=== PATIENT | female | born 1930 | race Caucasian/White ===

== ENCOUNTER 2018-02-26 08:42 | Emergency (ER) | payer MEDICARE, MEDICAID ==
[~2018-02-26] VITALS: Ht 152.4 cm; Wt 60.9 kg
[~2018-02-26 08:42] MED LIST: AMLO10TA PO; ATEN25TA17 PO; FLUO-81 PO; GABA-532 PO; PENT100C9 PO; SIMV20TA5 PO; TRAM50TA2 PO; VALS160T2 PO
[2018-02-26 09:32] LABS: CLARITY,URINE CLOUDY (Clear); COLOR,URINE YELLOW (Yellow); GLUCOSE, URINE NEGATIVE (Neg); KETONES,URINE NEGATIVE (Neg); LEUKOCYTE ESTERASE ,URINE LARGE (Neg); NITRITES, URINE NEGATIVE (Neg); OCCULT BLOOD,URINE MODERATE (Neg); PROTEIN,URINE 30 mg/dl (Neg); UROBILINOGEN,URINE 0.2 E.U/dL (0.2-1.0)
[2018-02-26 09:32] LABS: BASOPHILS % (AUTO) 0.5 % (0-1); EOSINOPHILS # (AUTO) 0.1 X10'3 (0-0.9); EOSINOPHILS % (AUTO) 1.3 % (0-6); HEMATOCRIT 43.4 % (35.0-45.0); HEMOGLOBIN 14.4 g/dl (12.0-16.0); LYMPHOCYTES # (AUTO) 1.6 X10'3 (1.1-4.8); LYMPHOCYTES % (AUTO) 22.9 % (21-51); MEAN CORPUSCULAR HEMOGLOBIN 28.2 PG (27.0-31.0); MEAN CORPUSCULAR HGB CONC 33.2 % (33.0-36.5); MEAN PLATELET VOLUME 10.2 FL (7.4-10.4); MONOCYTES # (AUTO) 0.8 X10'3 (0-0.9); MONOCYTES % (AUTO) 11.4 % (2-12); NEUTROPHILS # (AUTO) 4.3 X10'3 (1.8-7.7); NEUTROPHILS % (AUTO) 63.9 % (42-75); PLATELET COUNT 170 X10'3 (140-440); RED CELL DISTRIBUTION WIDTH 15.7 % (11.5-14.5); WHITE BLOOD COUNT 6.8 X10'3 (4.5-11.0)
[2018-02-26 09:35] LABS: UA COLLECTION TYPE CLN CATCH MIDSTREAM
[2018-02-26 09:45] LABS: BACTERIA,URINE 4+ /HPF (Neg); MUCUS STRANDS MODERATE /LPF (Neg); SQUAMOUS EPITHELIAL CELL,UR MODERATE /LPF (FEW); WBC,URINE TNTC /HPF (0-4)
[2018-02-26 09:48] LABS: ALANINE AMINOTRANSFERASE 7 U/L (12-78); ALBUMIN 3.6 G/DL (3.4-5.0); ALBUMIN/GLOBULIN RATIO 0.9 (1.1-1.5); ALKALINE PHOSPHATASE 55 IU/L (46-116); ANION GAP 11 (8-16); ASPARTATE AMINO TRANSFERASE 19 U/L (10-37); BILIRUBIN,TOTAL 0.5 MG/DL (0.1-1.0); BLOOD UREA NITROGEN 11 MG/DL (7-18); BUN/CREATININE RATIO 11.6 (6.6-38.0); CALCIUM 9.2 MG/DL (8.5-10.1); CHLORIDE 100 MMOL/L (99-107); CREATININE 0.95 MG/DL (0.40-0.90); GLUCOSE 94 MG/DL (70-104); SODIUM 138 MMOL/L (135-145); TOTAL CARBON DIOXIDE 26.8 MMOL/L (24-32); TOTAL PROTEIN 7.7 G/DL (6.4-8.2); eGFR 56 ML/MIN
[2018-02-26 09:51] LABS: LIPASE 91 U/L (73-393); TROPONIN I < 0.04 NG/ML (0.0-0.05)
[2018-02-26] MEDS ORDERED: BISA-155 PO (09:58)
[2018-02-26] MEDS ORDERED: MAGN296S50 PO (09:58)
[2018-02-26] MEDS ORDERED: ciprofloxacin 250mg tablet PO ONE (10:00)
[2018-02-26] MEDS ORDERED: CIPR-259 PO (10:06)
[2018-02-26 10:16] VITALS: BP 145/82
== END 2018-02-26 10:23 | disposition home or self-care (01) ==
LOC: ER 08:43
DX: N39.0 Urinary tract infection, site not specified (principal); K59.00 Constipation, unspecified; E78.00 Pure hypercholesterolemia, unspecified; K21.9 Gastro-esophageal reflux disease without esophagitis; Z90.710 Acquired absence of both cervix and uterus; Z88.6 Allergy status to analgesic agent; Z88.8 Allergy status to other drugs, medicaments and biological substances
CPT/HCPCS: 36415; 80053; 81001; 83605; 83690; 84484; 85025; 87088; 99284

== ENCOUNTER 2018-08-20 10:11 | Inpatient (IN) | payer MEDICARE, MEDICAID ==
[~2018-08-20] VITALS: Ht 160 cm; Wt 56.8 kg
[~2018-08-20 10:11] MED LIST changes: +BISA-155 PO; +MAGN296S50 PO
--- NOTE | 2018-08-20 10:47 | NUR ---
pt at ct
[2018-08-20 10:59] LABS: LYMPHOCYTES # (AUTO) 1.5 X10'3 (1.1-4.8); MEAN CORPUSCULAR HEMOGLOBIN 28.7 PG (27.0-31.0); MONOCYTES # (AUTO) 0.6 X10'3 (0-0.9); NEUTROPHILS # (AUTO) 3.2 X10'3 (1.8-7.7); NEUTROPHILS % (AUTO) 59.8 % (42-75)
[2018-08-20] MEDS ORDERED: aspirin 325mg tablet PO ONE (11:00)
[2018-08-20 11:01] LABS: BASOPHILS # (AUTO) 0.1 X10'3 (0-0.2); BASOPHILS % (AUTO) 1.1 % (0-1); EOSINOPHILS % (AUTO) 0.3 % (0-6); HEMATOCRIT 44.2 % (35.0-45.0); HEMOGLOBIN 14.9 g/dl (12.0-16.0); LYMPHOCYTES % (AUTO) 27.5 % (21-51); MEAN CORPUSCULAR HGB CONC 33.6 g/dL (33.0-36.5); MEAN CORPUSCULAR VOLUME 85.2 FL (78-98); MEAN PLATELET VOLUME 10.3 FL (7.4-10.4); MONOCYTES % (AUTO) 11.3 % (2-12); PLATELET COUNT 147 X10'3 (140-440); RED BLOOD COUNT 5.18 X10'6 (4.20-5.60); RED CELL DISTRIBUTION WIDTH 14.6 % (11.5-14.5); WHITE BLOOD COUNT 5.4 X10'3 (4.5-11.0)
[2018-08-20 11:08] LABS: INR 1.1 INR; PARTIAL THROMBOPLASTIN TIME 32 SECONDS (22-32); PROTHROMBIN TIME 10.7 SECONDS (9.0-12.0)
[2018-08-20 11:11] LABS: ALANINE AMINOTRANSFERASE 10 U/L (12-78); ALBUMIN 3.5 G/DL (3.4-5.0); ALBUMIN/GLOBULIN RATIO 0.9 (1.1-1.5); ALKALINE PHOSPHATASE 59 IU/L (46-116); ANION GAP 9 (8-16); ASPARTATE AMINO TRANSFERASE 20 U/L (10-37); BILIRUBIN,TOTAL 0.6 MG/DL (0.1-1.0); BLOOD UREA NITROGEN 10 MG/DL (7-18); BUN/CREATININE RATIO 11.5 (6.6-38.0); CALCIUM 9.5 MG/DL (8.5-10.1); CHLORIDE 100 MMOL/L (99-107); CREATININE 0.87 MG/DL (0.40-0.90); GLUCOSE 90 MG/DL (70-104); POTASSIUM 3.5 MMOL/L (3.5-5.1); SODIUM 138 MMOL/L (135-145); TOTAL CARBON DIOXIDE 29.4 MMOL/L (24-32); TOTAL PROTEIN 7.4 G/DL (6.4-8.2); TROPONIN I 0.43 NG/ML (0.0-0.05); eGFR 61 ML/MIN
[2018-08-20] MEDS ORDERED: potassium Cl 20 mEq SR tablet PO PRN (13:05)
[2018-08-20] MEDS ORDERED: magnesium 4gm in 100ml NS 100 ML IV PRN (13:05)
[2018-08-20] MEDS ORDERED: mag hydrox/Alum hydrox/simeth 30ml oral suspension PO PRN (13:05)
[2018-08-20] MEDS ORDERED: magnesium 2GM in 50ml NS 50 ML IV PRN (13:05)
[2018-08-20] MEDS ORDERED: magnesium Cl slow-release 64mg tablet PO PRN (13:05)
[2018-08-20] MEDS ORDERED: magnesium hydroxide 30ml (MOM) UD suspension PO PRN (13:05)
[2018-08-20] MEDS ORDERED: ondansetron/PF 4mg/2ml inj IV PRN (13:05)
[2018-08-20] MEDS ORDERED: potassium Cl 40MEQ/NS 500ml 500 ML IV PRN ×2 (13:05)
[2018-08-20] MEDS ORDERED: CARB1TAB35 PO (13:25)
[2018-08-20] MEDS ORDERED: LORA0.5T PO (13:27)
[2018-08-20] MEDS ORDERED: LEVO50TA8 PO (13:28)
[2018-08-20] MEDS ORDERED: FLUT100D2 INH (13:32)
[2018-08-20] MEDS ORDERED: LOSA50TA64 PO (13:33)
[2018-08-20] MEDS ORDERED: QUET25TA34 PO (13:52)
[2018-08-20] MEDS ORDERED: PROP10DR4 EACHEYE (13:53)
[2018-08-20] MEDS ORDERED: LORazepam 0.5 MG tablet PO PRN (15:20)
[2018-08-20] MEDS ORDERED: traMADol 50MG tablet PO PRN (15:20)
--- NOTE | 2018-08-20 16:16 | NUR ---
called to give report, receiving RN is unavailable, asked to give report to charge nurse but she said she was busy and would call back.
[2018-08-20 16:48] VITALS: BP 186/65
--- NOTE | 2018-08-20 17:18 | NUR ---
Received patient from , [id number]
[2018-08-20 18:00] VITALS: BP 131/56
--- NOTE | 2018-08-20 18:12 | NUR ---
Report to Rocío Feliz RN
[2018-08-20] MEDS: pentosan 100mg capsule PO SCH ×2 (18:59→20:43)
[2018-08-20] MEDS ORDERED: BUDESONIDE 0.25 MG/2 ML AMPUL.NEB IH SCH (20:00)
[2018-08-20] MEDS: gabapentin 300mg capsule PO SCH (20:40)
[2018-08-20] MEDS: carbidoba-levodopa 25-100mg tablet PO SCH (20:41)
[2018-08-20] MEDS: polyvinyl alcohol ophthalmic drops 15ml bottle EACHEYE SCH (20:41)
[2018-08-20] MEDS ORDERED: QUEtiapine 25mg tablet PO SCH (21:00)
[2018-08-20] MEDS ORDERED: atorvastatin 10mg tablet PO SCH (21:00)
[2018-08-20 22:00] VITALS: BP 165/56
[2018-08-21 01:37] LABS: BASOPHILS % (AUTO) 0.6 % (0-1); EOSINOPHILS % (AUTO) 0.5 % (0-6); HEMATOCRIT 42.8 % (35.0-45.0); HEMOGLOBIN 14.2 g/dl (12.0-16.0); LYMPHOCYTES # (AUTO) 1.8 X10'3 (1.1-4.8); LYMPHOCYTES % (AUTO) 36.2 % (21-51); MEAN CORPUSCULAR HEMOGLOBIN 28.1 PG (27.0-31.0); MEAN PLATELET VOLUME 11.1 FL (7.4-10.4); MONOCYTES # (AUTO) 0.6 X10'3 (0-0.9); MONOCYTES % (AUTO) 11.7 % (2-12); NEUTROPHILS # (AUTO) 2.6 X10'3 (1.8-7.7); PLATELET COUNT 137 X10'3 (140-440); RED BLOOD COUNT 5.04 X10'6 (4.20-5.60); RED CELL DISTRIBUTION WIDTH 14.6 % (11.5-14.5)
[2018-08-21 01:46] LABS: ALBUMIN 3.2 G/DL (3.4-5.0); ANION GAP 8 (8-16); BLOOD UREA NITROGEN 11 MG/DL (7-18); BUN/CREATININE RATIO 15.5 (6.6-38.0); CALCIUM 9.2 MG/DL (8.5-10.1); CHLORIDE 105 MMOL/L (99-107); CHOL/HDL RATIO 3.5 (0.00-4.99); CHOLESTEROL 154 MG/DL (0-200); CREATININE 0.71 MG/DL (0.40-0.90); GLUCOSE 90 MG/DL (70-104); HDL CHOLESTEROL 44 MG/DL (35-60); LDL CHOLESTEROL 90 MG/DL (50-100); MAGNESIUM 1.6 MG/DL (1.5-2.4); POTASSIUM 3.4 MMOL/L (3.5-5.1); SODIUM 143 MMOL/L (135-145); TOTAL CARBON DIOXIDE 29.7 MMOL/L (24-32); TRIGLYCERIDES 92 MG/DL (20-135); TROPONIN I 0.27 NG/ML (0.0-0.05); eGFR 78 ML/MIN
[2018-08-21 02:00] VITALS: BP 169/59
[2018-08-21 06:00] VITALS: BP 170/59
--- NOTE | 2018-08-21 06:26 | NUR ---
Problems reprioritized. Patient report given, questions answered & plan of care reviewed with CHRISTY Hardin.
[2018-08-21] MEDS ORDERED: levoTHYROXINE 25mcg tablet PO SCH (07:00)
[2018-08-21] MEDS: polyvinyl alcohol ophthalmic drops 15ml bottle EACHEYE SCH (07:47)
[2018-08-21] MEDS: gabapentin 300mg capsule PO SCH (07:49)
[2018-08-21] MEDS: carbidoba-levodopa 25-100mg tablet PO SCH ×2 (07:50→13:33)
[2018-08-21] MEDS: potassium Cl 20 mEq SR tablet PO PRN ×2 (07:54→16:15)
[2018-08-21] MEDS: pentosan 100mg capsule PO SCH ×2 (07:55→13:00)
[2018-08-21] MEDS ORDERED: K and/or MAG REPLACEMENT MC SCH (08:00)
[2018-08-21] MEDS ORDERED: aspirin 81mg tablet.DR PO SCH (08:00)
[2018-08-21] MEDS ORDERED: amLODIPine 5mg tablet PO SCH (08:00)
[2018-08-21] MEDS ORDERED: FLUoxetine 20mg capsule PO SCH (08:00)
[2018-08-21] MEDS ORDERED: enoxaparin 40mg/0.4ml syringe SQ SCH (08:00)
[2018-08-21] MEDS ORDERED: losartan 50mg tablet PO SCH (08:00)
--- NOTE | 2018-08-21 09:00 | NUR ---
MRI form completed. Pt reports she is claustrophobic. TC placed to Dr. Bhatti. Informed may given Ativan po (already ordered prn). Ativan given. Pt taken to MRI and was unable to tolerate being in the scanner. Pt reported to have slightly increased blood pressure and voiced she was not tolerating the MRI. Pt returned to the room. TC placed to who ordered a carotid doppler.
[2018-08-21 10:00] VITALS: BP 180/45
[2018-08-21] MEDS ORDERED: aspirin 81mg tablet.DR PO ONE (10:30)
[2018-08-21 18:00] VITALS: BP 173/54
[2018-08-21] MEDS ORDERED: ASPI-1 PO (18:14)
--- NOTE | 2018-08-21 19:11 | NUR ---
Patient given DC orders and PIV removed. Her daughter is on her way to pick her up.
--- NOTE | 2018-08-21 19:27 | NUR ---
Patient wheeled out to personal car.
[2018-08-22] MEDS ORDERED: aspirin 325mg tablet PO SCH (08:00)
== END 2018-08-21 19:30 | disposition home or self-care (01) | DRG 282 ==
LOC: ER 10:14 → ED HOLD 13:03 → EDBEDREQ 15:51 → ORTHO 4S 16:50
PROVIDERS: ADMIT Hospitalist; ATTEND Hospitalist
DX: I21.A1 Myocardial infarction type 2 (principal); C50.919 Malignant neoplasm of unspecified site of unspecified female breast; E78.00 Pure hypercholesterolemia, unspecified; G20 Parkinson's disease; R74.8 Abnormal levels of other serum enzymes; E87.6 Hypokalemia; Z60.2 Problems related to living alone; I10 Essential (primary) hypertension; G89.29 Other chronic pain; K21.9 Gastro-esophageal reflux disease without esophagitis; M79.7 Fibromyalgia; Z79.82 Long term (current) use of aspirin; Z85.841 Personal history of malignant neoplasm of brain; Z90.710 Acquired absence of both cervix and uterus; Z87.440 Personal history of urinary (tract) infections; Z88.8 Allergy status to other drugs, medicaments and biological substances; Z79.899 Other long term (current) drug therapy
CPT/HCPCS: 36415; 70450; 70544; 70551; 71045; 80048; 80053; 80061; 83735; 84484; 85025; 85610; 85730; 87070; 93005; 93306; 93880; 97161; 97530; 99285; G0378; J1650